=== PATIENT | male | born 1990 | race Caucasian/White ===

== ENCOUNTER 2018-03-25 00:21 | Emergency (ER) | payer OTHER ==
[~2018-03-25] VITALS: Ht 185.4 cm; Wt 93.0 kg
[2018-03-25] MEDS ORDERED: AMOX-CLAV 875-1 EACH PO (04:12)
[2018-03-25] MEDS ORDERED: KETO10TA2 PO (04:16)
== END 2018-03-25 04:25 | disposition home or self-care (01) ==
LOC: ER 00:21
DX: S01.412A Laceration without foreign body of left cheek and temporomandibular area, initial encounter (principal); S05.12XA Contusion of eyeball and orbital tissues, left eye, initial encounter; W03.XXXA Other fall on same level due to collision with another person, initial encounter; Y93.89 Activity, other specified; Y92.89 Other specified places as the place of occurrence of the external cause; Y99.8 Other external cause status